=== PATIENT | male | born 1960 | race Caucasian/White ===

== ENCOUNTER 2018-05-26 12:35 | Emergency (ER) | payer MEDICARE, OTHER ==
[~2018-05-26] VITALS: Ht 180.3 cm; Wt 93.0 kg
[~2018-05-26 12:35] MED LIST: AMLO2.5T2 PO; BENA10TA4 PO; COL250 PO; CRES5 PO; DIVA500T34 PO; GABA300C16 PO; HYDR50CA PO; IBUP-1541 PO; LEVO-86 PO; LORA-444 PO; MAA5 PO; PROP20TA4 PO; QUET200T PO; QUET300T2 PO; QUET400T PO; TAMS-14 PO; ZOLP10TA PO; [UNRECOGNIZED DRUG - CODE]
[2018-05-26 12:41] VITALS: BP 142/72; PULSE 88; RESP 18; Ht 180.3 cm; Wt 93.0 kg
[2018-05-26] MEDS ORDERED: D-ME473S2 PO (13:13)
--- NOTE | 2018-05-26 13:20 | ERD ---
ER Documentation Chief Complaint Chief Complaint cold syptoms, cough/congestion x 3 days HPI This is a 57-year-old male with a history of paranoid schizophrenia, depression, anxiety, bipolar disorder presents ED with complaints of cold-like symptoms for the past 3 days. Patient admits to sneezing, coughing and runny nose. Denies sore throat, ear pain, chest pain, shortness of breath, fever, chills, nausea, vomiting, diarrhea, constipation, abdominal pain or other symptoms. ROS All systems reviewed and are negative except as per history of present illness. Medications Home Meds Active Scripts Dextromethorphan Hb-Promethazine Hcl* (Promethazine DM* Syrup) 473 Ml Syrup, 5 ML PO Q6 PRN for COUGH for 5 Days, ML Prov:FRANCES MILLAN PA-C 05/26/18 Ibuprofen* (Ibuprofen*) 400 Mg Tablet, 400 MG PO Q6H PRN for PAIN, #30 TAB Prov:JONEL RAO NP 01/15/15 Reported Medications Gabapentin* (Gabapentin*) 300 Mg Capsule, 300 MG PO HS, CAP 12/28/13 Quetiapine Fumarate* (Seroquel*) 200 Mg Tablet, 200 MG PO HS, TAB 12/28/13 Quetiapine Fumarate* (Seroquel*) 300 Mg Tablet, 300 MG PO HS, TAB 12/28/13 Quetiapine Fumarate* (Seroquel*) 400 Mg Tablet, 400 MG PO HS, TAB 12/28/13 Lorazepam* (Ativan*) 2 Mg Tablet, 2 MG PO TID PRN for ANXIETY, TAB 12/28/13 Calcium Carbonate/Mag Carb (Mylanta Gelcap) 1 Tab Tablet 04/23/12 Tamsulosin Hcl* (Flomax*) 0.4 Mg Cap.sr.24h, 0.4 MG PO DAILY 04/23/12 Hydroxyzine Pamoate* (Vistaril*) 50 Mg Cap, 50 MG PO Q6H 04/23/12 Amlodipine Besylate* (Norvasc*) 2.5 Mg Tablet, 2.5 MG PO DAILY 04/23/12 Divalproex Sodium (Depakote Er) 500 Mg Tab.sr.24h, 500 MG PO BEDTIME 04/23/12 Zolpidem Tartrate* (Ambien*) 10 Mg Tablet, 10 MG PO HS 02/29/12 Rosuvastatin Calcium* (Crestor*) 5 Mg Tablet, 5 MG PO DAILY 02/29/12 Docusate Sodium (Colace) 250 Mg Cap, 250 MG PO BID PRN 02/29/12 Al Hydroxide/Mg Hydroxide (Maalox) 148 Ml Susp, 30 ML PO PRN Q4 02/29/12 Benazepril Hcl* (Benazepril Hcl*) 10 Mg Tablet, 10 MG PO DAILY 02/29/12 Propranolol Hcl* (Propranolol Hcl*) 20 Mg Tablet, 20 MG PO BID 02/29/12 Levothyroxine Sodium* (Synthroid*) 100 Mcg Tablet, 100 MCG PO DAILY 02/29/12 Allergies Allergies: Coded Allergies: [place] (Verified Allergy, Mild, 03/08/14) Penicillins (Verified Allergy, Mild, 03/08/14) diphenhydramine (Verified Allergy, Mild, 03/08/14) PMhx/Soc Anesthesia Reaction: No Hx Neurological Disorder: No Hx Respiratory Disorders: No Hx Cardiac Disorders: Yes (HTN) Hx Miscellaneous Medical Probl: Yes (HYPERLIPIDEMIA) Hx Alcohol Use: No Hx Substance Use: No Hx Tobacco Use: No Smoking Status: Never smoker FmHx Family History: No diabetes Physical Exam Vitals Vital Signs Date Temp Pulse Resp B/P (MAP) Pulse Ox O2 O2 Flow FiO2 Time Delivery Rate 05/26/18 97.5 88 18 142/72 97 12:41 (95) Physical Exam Physical Exam Vitals signs: Reviewed by me. General: Well developed, well nourished, in no acute distress. Patient is awake and alert. Head: Normocephalic, atraumatic. Eyes: Normal conjunctiva, Pupils PERRLA, EOM intact grossly ENT: Pharynx is clear, Moist mucous membranes, external ears, nose and mouth normal, no tonsillar adenopathy, exudate or erythema, no kissing tonsils, no uvula deviation, no rhinorrhea present in bilateral nares, tympanic membrane visualized bilaterally no bulging, erythema, purulent air-fluid line seen Neck: Supple, no masses, lymphadenopathy or JVD Respiratory: Clear to auscultation bilaterally with no wheezing, rhonchi, rales, no distress Cardiovascular: RRR, no murmurs, rubs, or gallops Neurologic: Alert and oriented, moving all extremities, normal speech, no focal weakness, no cerebellar signs. Normal mentation Skin: warm and dry, No rash Psych: Normal mood Procedures/MDM ER COURSE: The patient was stable throughout ED course. I kept the patient and/or family informed of laboratory and diagnostic imaging results throughout the emergency room course. The patient was promptly evaluated and a treatment plan was devised based on H&P and other data. This plan was discussed with the patient who agreed and had no further questions or concerns prior to discharge. MEDICAL DECISION MAKIN-year-old male presents ED with common cold like symptoms for the past 3 days. The patient's clinical presentation is very consistent with an common cold. No evidence of pneumonia. The patient is well-appearing without respiratory distress. Normal oxygen saturation. X-ray imaging not indicated. No indication for Tamiflu. The patient does not exhibit any clinical signs or symptoms concerning for wilner us bacterial infection or systemic illness. Based on history and clinical exam findings the patient does not appear to have evidence of pneumonia, strep pharyngitis, urinary tract infection, bacteremia, sepsis, or meningitis. For these reasons I do not believe it is necessary to obtain laboratory testing or diagnostic imaging. I believe it would be appropriate for symptom control, and close outpatient primary care follow-up. We discussed follow up with the patient's primary care doctor within 24 to 48 h ours as needed. We also discussed return to the emergency room for worsening symptoms or worsening condition. DISPOSITION PLAN: We discussed follow up with the patient's primary care doctor within 24 to 48 hours. Patient counseled regarding my diagnostic impression and care plan. Prior to discharge all questions answered. Pt agrees with treatment plan and understands strict return precautions. Precautionary instructions provided including instructions to return to the ER if not improving or for any worsening or changing symptoms or concerns. ExitCare instructions provided. Prior to discharge, patients vital signs have been reviewed SPECIALIST FOLLOW UP RECOMMENDED: None Patient has been advised to follow up with primary care in 1-2 days. Disclaimer: Inadvertent spelling and grammatical errors are likely due to EHR/dictation software use and do not reflect on the overall quality of patient care. Also, please note that the electronic time recorded on this note does not necessarily reflect the actual time of the patient encounter. Blood Pressure Assessment: Patient's blood pressure was elevated (>120/80) but appears stable without evidence of hypertension emergency or urgency. The patient was counseled about the risks of hypertension and urged to pursue outpatient monitoring and therapy within a week with their primary care physician. Departure Diagnosis: Primary Impression: Common cold Condition: Stable Patient Instructions: Adult Self-Care for Colds Referrals: COMMUNITY CLINICS YOU HAVE RECEIVED A MEDICAL SCREENING EXAM AND THE RESULTS INDICATE THAT YOU DO NOT HAVE A CONDITION THAT REQUIRES URGENT TREATMENT IN THE EMERGENCY DEPARTMENT. FURTHER EVALUATION AND TREATMENT OF YOUR CONDITION CAN WAIT UNTIL YOU ARE SEEN IN YOUR DOCTORS OFFICE WITHIN THE NEXT 1-2 DAYS. IT IS YOUR RESPONSIBILITY TO MAKE AN APPOINTMENT FOR FOLOW-UP CARE. IF YOU HAVE A PRIMARY DOCTOR --you should call your primary doctor and schedule an appointment IF YOU DO NOT HAVE A PRIMARY DOCTOR YOU CAN CALL OUR PHYSICIAN REFERRAL HOTLINE AT IF YOU CAN NOT AFFORD TO SEE A PHYSICIAN YOU CAN CHOSE FROM THE FOLLOWING [facility] [address] [facility]. [facility] [address] [facility] [facility] [address] [facility] [address] [facility] [address] [facility]. [facility] [address] Additional Instructions: Patient advised to return to the ED immediately for new or worsening symptoms. Patient advised to follow up with primary care provider in the next 24-48 hours. Patient verbalized understanding and agrees with treatment plan and course of action. If patient has no primary care they may follow up with one of the [facility] clinics listed on the following page or one of the options listed below [facility] + [facility] [address] [place] [id number] or [facility] [address] [place] [address] or [facility] [address] [place] [address] FRANCES MILLAN PA-C May 26, 2018 13:20
== END 2018-05-26 13:21 | disposition home or self-care (01) ==
LOC: FTE 12:35
DX: J00 Acute nasopharyngitis [common cold] (principal); I10 Essential (primary) hypertension
CPT/HCPCS: 99283

== ENCOUNTER 2019-03-29 10:04 | Emergency (ER) | payer MEDICARE, OTHER ==
[~2019-03-29] VITALS: Ht 177.8 cm; Wt 92.0 kg
[~2019-03-29 10:04] MED LIST changes: +ARIP10TA16 PO; +ARIP20TA5 PO; -BENA10TA4 PO; +BENA10TA6 PO; +CYCL10TA7 PO; +D-ME473S2 PO; +DOCU100T PO; +DOCU250C68 PO; +GLIP10TA14 PO; +HALO100A3 IM; +HYDR30CR75 PR; +IBUP-1542 PO; +IBUP-1545 PO; +LEVE-5 PO; +LEVO100T8 PO; +LINA290C PO; +METF100010 PO; +MIRA50TA PO; +OMEP40CA38 PO; +PILO5TAB PO; +QUET300T18 PO; +ROSU40TA35 PO; +SEMA0.25 SQ; +SENN-120 PO; +SERT50TA PO; +SITA100T11 PO; +TEMA30CA6 PO; +TRA100 PO
[2019-03-29 10:06] VITALS: Ht 177.8 cm; Wt 92.0 kg
[2019-03-29] MEDS ORDERED: SOD CHLORIDE 0.9% 1,000 ML IV STA (10:40)
[2019-03-29 10:44] VITALS: BP 151/76; PULSE 76; RESP 15
[2019-03-29] MEDS ORDERED: OXYCODONE/ACETAMINOPHEN (5/325) TAB PO ONE (11:30)
== END 2019-03-29 12:03 | disposition home or self-care (01) ==
LOC: E/R 10:04
DX: K64.9 Unspecified hemorrhoids (principal); I10 Essential (primary) hypertension; E11.9 Type 2 diabetes mellitus without complications; Z79.84 Long term (current) use of oral hypoglycemic drugs
CPT/HCPCS: 36415; 80053; 83690; 85025; 85610; 85730; 99284; J7030